=== PATIENT | male | born 1970 | race Hispanic/Latino ===

== ENCOUNTER 2017-09-27 19:37 | Emergency (ER) | payer OTHER ==
[2017-09-27 20:13] LABS: BASOPHILS % (AUTO) 0.7 % (0.0-5.0); EOSINOPHILS % (AUTO) 2.5 % (0.0-8.0); HEMATOCRIT 42.3 % (42-54); LYMPHOCYTES % (AUTO) 12.5 % (21.0-51.0); MEAN CORPUSCULAR HGB CONC 35.5 g/dL (32.0-36.0); MEAN CORPUSCULAR VOLUME 87.4 fL (79-99); MONOCYTES % (AUTO) 4.9 % (3.0-13.0); NEUTROPHILS % (AUTO) 79.4 % (40.0-77.0); PLATELET COUNT (AUTO) 235 K/uL (130-400); RED BLOOD CELL COUNT(AUTO) 4.84 MIL/uL (4.50-6.20); RED CELL DISTRIBUTION WIDTH 13.7 % (11.0-15.5); WHITE BLOOD COUNT (AUTO) 8.7 K/uL (4.8-10.8)
[2017-09-27 20:25] LABS: CARBON DIOXIDE 26 mmol/L (21-32); CHLORIDE 105 mmol/L (101-111); CREATININE 1.1 mg/dL (0.5-1.5); GLOMERULAR FILTR. RATE CALC 77 mL/min (>60); GLUCOSE,RANDOM 104 mg/dL (70-105); POTASSIUM 3.4 mmol/L (3.5-5.1); SODIUM SERUM 141 mmol/L (136-145); UREA NITROGEN, BLOOD 10 mg/dL (7-18)
[2017-09-27 20:26] LABS: INR 1.09 (0.85-1.15); PARTIAL THROMBOPLASTIN TIME 28.2 SEC (26.3-35.5); PROTHROMBIN TIME 11.4 SEC (9.6-11.6)
[2017-09-27 20:39] LABS: ALANINE AMINOTRANSFERASE 28 U/L (12-78); ASPARTATE AMINOTRANSFERASE 15 U/L (10-37); BILIRUBIN,TOTAL 0.8 mg/dL (0.2-1.0); CREATINE KINASE MB < 0.5 ng/mL (0.5-3.6); CREATINE KINASE, TOTAL 40 U/L (21-232); MYOGLOBIN 36 ng/mL (10-92); TOTAL PROTEIN, SERUM 7.5 g/dL (6.0-8.3)
== END 2017-09-27 21:31 | disposition home or self-care (01) ==
LOC: EDH 19:37
DX: M19.012 Primary osteoarthritis, left shoulder (principal); R07.89 Other chest pain; Z79.899 Other long term (current) drug therapy
CPT/HCPCS: 36415; 71045; 73030; 80053; 82550; 82553; 83874; 84484; 85025; 85610; 85730; 93005

== ENCOUNTER 2018-05-06 14:50 | Emergency (ER) | payer OTHER ==
[2018-05-06] MEDS ORDERED: ASPIRIN 325 MG TABLET ONE (15:30)
[2018-05-06 15:49] LABS: BASOPHILS % (AUTO) 0.6 % (0.0-5.0); EOSINOPHILS % (AUTO) 1.2 % (0.0-8.0); HEMATOCRIT 44.7 % (42-54); LYMPHOCYTES % (AUTO) 8.2 % (21.0-51.0); MEAN CORPUSCULAR HEMOGLOBIN 30.6 pg (27.0-33.0); MEAN CORPUSCULAR HGB CONC 34.3 g/dL (32.0-36.0); MEAN CORPUSCULAR VOLUME 89.3 fL (79-99); MONOCYTES % (AUTO) 3.9 % (3.0-13.0); NEUTROPHILS % (AUTO) 86.1 % (40.0-77.0); PLATELET COUNT (AUTO) 238 K/uL (130-400); RED CELL DISTRIBUTION WIDTH 13.8 % (11.0-15.5); WHITE BLOOD COUNT (AUTO) 10.7 K/uL (4.8-10.8)
[2018-05-06 16:00] LABS: POTASSIUM 4.1 mmol/L (3.5-5.1)
[2018-05-06 16:06] LABS: INR 1.02 (0.85-1.15); PARTIAL THROMBOPLASTIN TIME 29.4 SEC (26.3-35.5); PROTHROMBIN TIME 10.7 SEC (9.6-11.6)
[2018-05-06 16:10] LABS: BILIRUBIN,TOTAL 0.6 mg/dL (0.2-1.0); TOTAL PROTEIN, SERUM 7.7 g/dL (6.0-8.3)
[2018-05-06 16:34] LABS: B-TYPE NATRIURETIC PEPTIDE 8 pg/mL (0-100)
[2018-05-06] MEDS ORDERED: KETOROLAC TROMETHAMINE 15MG/ML ONE (17:02)
== END 2018-05-06 18:14 | disposition home or self-care (01) ==
LOC: EDH 14:50
DX: R07.89 Other chest pain (principal); F41.9 Anxiety disorder, unspecified; M19.90 Unspecified osteoarthritis, unspecified site; Z79.899 Other long term (current) drug therapy; Z87.891 Personal history of nicotine dependence
CPT/HCPCS: 36415; 71045; 80053; 82550; 83874; 83880; 84484 ×2; 85025; 85610; 85730; 93005 ×2; 96374; 99284; J1885

== ENCOUNTER → 2018-05-18 | Outpatient (CLI) | payer OTHER | END | disposition home or self-care (01) | LOC: RAH 09:51 | PROVIDERS: ATTEND Internal Medicine Cardiovascular Disease | DX: R07.9 Chest pain, unspecified (principal) | CPT/HCPCS: 93306 ==